=== PATIENT | male | born 1960 | race Caucasian/White ===

== ENCOUNTER 2022-12-12 08:12 | Outpatient (CLI) | payer BC, SELFPAY ==
[2022-12-12 09:42] LABS: Chloride* 108 mmol/L (96-114); Sodium* 140 mmol/L (135-149)
[2022-12-12 09:43] LABS: Potassium* 4.5 mmol/L (3.6-5.1)
[2022-12-12 09:45] LABS: Blood Urea Nitrogen* 22 mg/dL (7-30); Carbon Dioxide* 27 mmol/L (20-32); Cholesterol* 176 mg/dL (90-199); Creatinine* 1.3 mg/dL (0.5-1.5); Estimated Glomerular Filt Rate 63 ml/min
[2022-12-12 09:46] LABS: Calcium* 9.2 mg/dL (8.4-10.6); Glucose* 87 mg/dL (60-115); HDL Cholesterol* 59 mg/dL (>=40); LDL Cholesterol Calculated 101 mg/dL (<100); Triglycerides* 81 mg/dL (40-149)
[2022-12-12 10:10] LABS: Creatinine Urine 155.3 mg/dL
[2022-12-12 10:21] LABS: Microalbumin Creatinine Ratio 0 mg/g (0-30); Microalbumin Urine < 1 mg/dL
== END 2022-12-12 08:13 | disposition home or self-care (01) ==
LOC: NFLDREF 08:12
PROVIDERS: PCP Internal Medicine; Visit Provider Internal Medicine
DX: Z00.00 Encounter for general adult medical examination without abnormal findings (principal); Z13.6 Encounter for screening for cardiovascular disorders; Z90.5 Acquired absence of kidney
CPT/HCPCS: 80048; 80061; 82043; 82570

== ENCOUNTER 2024-03-20 14:00 | Outpatient (RCR) | payer BC, SELFPAY | END 2024-07-18 23:59 | disposition home or self-care (01) | PROVIDERS: PCP Internal Medicine; Visit Provider Internal Medicine | DX: M79.18 Myalgia, other site (principal); Z51.89 Encounter for other specified aftercare | CPT/HCPCS: 97110; 97161 ==

== ENCOUNTER 2024-04-04 08:24 | Outpatient (CLI) | payer BC, SELFPAY | END 2024-04-04 08:25 | disposition home or self-care (01) | LOC: NFLDREF 04-08 20:19 | PROVIDERS: PCP Internal Medicine; Referring Provider Internal Medicine; Visit Provider Internal Medicine | DX: Z00.00 Encounter for general adult medical examination without abnormal findings (principal); R39.89 Other symptoms and signs involving the genitourinary system; Z90.5 Acquired absence of kidney; Z12.5 Encounter for screening for malignant neoplasm of prostate | CPT/HCPCS: 80048; 82043; 82570; 87086; G0103 ==

== ENCOUNTER 2024-09-01 16:15 | Outpatient (RCR) | payer BC, SELFPAY | END 2024-09-02 07:15 | disposition home or self-care (01) | PROVIDERS: PCP Internal Medicine; Visit Provider Internal Medicine | DX: M70.61 Trochanteric bursitis, right hip (principal); M25.551 Pain in right hip; Z74.09 Other reduced mobility; R29.898 Other symptoms and signs involving the musculoskeletal system; R26.9 Unspecified abnormalities of gait and mobility; Z51.89 Encounter for other specified aftercare | CPT/HCPCS: 97110; 97161 ==

== ENCOUNTER 2025-07-30 09:11 | Outpatient (CLI) | payer BC, SELFPAY | END 2025-07-30 09:12 | disposition home or self-care (01) | LOC: NFLDREF 08-04 15:48 | PROVIDERS: PCP Internal Medicine; Referring Provider Internal Medicine; Visit Provider Internal Medicine | DX: R39.89 Other symptoms and signs involving the genitourinary system (principal); Z90.5 Acquired absence of kidney | CPT/HCPCS: 80048; 82043; 82570; 87086 ==